=== PATIENT | female | born 1960 | race Two or more races ===

== ENCOUNTER 2023-10-31 12:02 | Emergency (ER) | payer OTHER ==
[~2023-10-31] VITALS: Ht 157.5 cm; Wt 70.3 kg
[2023-10-31] MEDS ORDERED: LIPITOR40 M1 PO (12:41)
[2023-10-31] MEDS ORDERED: COZAAR50 MG PO (12:42)
[2023-10-31] MEDS ORDERED: LIPITOR20 MG PO (12:42)
[2023-10-31] MEDS ORDERED: COZAAR25 MG PO (12:42)
[2023-10-31 14:14] LABS: HEMOGLOBIN 13.6 g/dL (12.0-15.00); MEAN CELL VOLUME 85.6 fL (80.00-100.00); MEAN CORPUSCULAR HEMOGLOBIN 28.3 pg (27.00-32.0); MEAN CORPUSCULAR HGB CONC 33.1 g/dl (32.0-36.0); PLATELET COUNT 203 K/uL (150-450); RED BLOOD COUNT 4.79 M/uL (4.00-6.00)
[2023-10-31 15:01] LABS: URINE APPEARANCE Clear; URINE BILIRRUBIN Negative (NEGATIVE); URINE BLOOD Negative; URINE COLOR Yellow; URINE GLUCOSE Negative (NEGATIVE); URINE KETONE Trace (NEGATIVE); URINE LEUKOCYTE Moderate; URINE NITRATE Negative; URINE PROTEIN Negative (NEGATIVE); URINE UROBILINOGEN 0.2 E.U./dl
[2023-10-31 15:05] LABS: URINE BACTERIA 144.8 uL (0.0-1933); URINE EPITHELIAL CELLS 7.2 uL (0.0-38.8); URINE RBC 2.4 uL (0.0-20.8); URINE WBC 20.5 uL (0.0-23.2)
[2023-10-31 17:17] LABS: CALCIUM 10.9 mg/dL (8.5-10.1); CREATININE SERUM 0.84 mg/dL (0.55-1.02); GFR 68.04; POTASSIUM 3.4 mEq/L (3.5-5.1)
[2023-10-31] MEDS ORDERED: DICLOFENAC SODI75 MG PO (18:19)
[2023-10-31] MEDS ORDERED: TRIAMCINOLONE ACETONIDE 40 MG/ML VIAL IM ONE (18:30)
[2023-10-31] MEDS ORDERED: KETOROLAC TROMETHAMINE 60 MG VIAL IM ONE (18:30)
== END 2023-10-31 18:56 | disposition home or self-care (01) ==
LOC: ER 12:03 → EMR PED 12:25 → ER 18:56
PROVIDERS: Emergency Medicine
DX: M54.50 Low back pain, unspecified (principal); R10.9 Unspecified abdominal pain; I10 Essential (primary) hypertension
CPT/HCPCS: 36415; 74177; 96372; 99284; J1885; J3301; Q9965

== ENCOUNTER 2023-11-21 09:05 | Outpatient (CLI) | payer OTHER ==
[~2023-11-21 09:05] MED LIST: COZAAR25 MG PO; COZAAR50 MG PO; DICLOFENAC SODI75 MG PO; LIPITOR20 MG PO; LIPITOR40 M1 PO
== END 2023-11-21 09:07 | disposition home or self-care (01) ==
LOC: SONOGRAMA 09:05
PROVIDERS: ATTEND Pathology Anatomic Pathology & Clinical Pathology
DX: D34 Benign neoplasm of thyroid gland (principal); E04.2 Nontoxic multinodular goiter

== ENCOUNTER 2024-09-22 14:54 | Emergency (ER) | payer OTHER ==
[~2024-09-22] VITALS: Ht 157.5 cm; Wt 64.9 kg
[2024-09-22] MEDS ORDERED: 0.9 % SODIUM CHLORIDE 500 ML IV STA (16:48)
[2024-09-22] MEDS ORDERED: FAMOtidine 10 MG/ML (4ML VIAL) IV PUSH STA (16:49)
[2024-09-22] MEDS ORDERED: ONDANSETRON HCL 2 MG/ML VIAL IV STA (16:49)
[2024-09-22] MEDS ORDERED: DIPHENOXYLATE HCL/ATROPINE 1 UDTAB TABLET PO STA (16:50)
[2024-09-22] MEDS ORDERED: HYOSCYAMINE SULFATE 0.125 MG TAB.SUBL SL ONE (17:00)
[2024-09-22 17:17] LABS: BASO % 0.6 % (0.1-1.2); EOS # 0.05 (0.04-0.54); EOS % 0.9 % (0.7-7.0); LYMPH # 1.94 (1.18-3.74); LYMPH % 35.7 % (19.3-53.1); MEAN PLATELET VOLUME 10.90 fl (9.4-12.4); MONO # 0.52 (0.24-0.82); MONO % 9.6 % (4.7-12.5); NEUT # 2.88 (1.56-6.13); NEUT % 53.0 % (34.0-71.1); RED CELL DISTRIBUTION WIDTH 13.1 % (11.6-14.4)
[2024-09-22 18:09] LABS: BUN CREA RATIO 10.0 (7.0-25.0); CREATININE SERUM 0.84 mg/dL (0.55-1.02); GFR 67.83; GLUCOSE FASTING 83.0 mg/dL (65-100); OSMOLALITY SERUM 284.0 MOSM/KG (275-295)
== END 2024-09-22 20:30 | disposition home or self-care (01) ==
LOC: ER 14:54
DX: K58.8 Other irritable bowel syndrome (principal)
CPT/HCPCS: 36415; 96365; 96366; 99282; J2405; J3490; J7042